=== PATIENT | male | born 1980 | race Caucasian/White ===

== ENCOUNTER 2018-09-07 10:18 | Emergency (ER) | payer OTHER ==
[~2018-09-07] VITALS: Wt 124.7 kg
[2018-09-07] MEDS ORDERED: ACULAR 0.5%3 ML OPH (10:56)
[2018-09-07] MEDS ORDERED: Tobrex Ophth S2.5 ML OPH (10:56)
== END 2018-09-07 11:01 | disposition home or self-care (01) ==
LOC: ED 10:18
DX: S05.01XA Injury of conjunctiva and corneal abrasion without foreign body, right eye, initial encounter (principal); Z91.013 Allergy to seafood; X58.XXXA Exposure to other specified factors, initial encounter; Y93.89 Activity, other specified; Y92.89 Other specified places as the place of occurrence of the external cause; Y99.8 Other external cause status